=== PATIENT | female | born 1945 | race African-American/Black ===

== ENCOUNTER 2017-11-09 12:13 | Emergency (ER) | payer OTHER ==
[~2017-11-09] VITALS: Ht 162.6 cm; Wt 70.0 kg
[~2017-11-09 12:13] MED LIST: HYDR-2768 PO; HYDR-3533 PO; NITR.4 SL; PROT40TA PO; ULTR50TA PO; WARF3TAB PO; WARF5TAB PO
[2017-11-09 12:14] VITALS: BP 117/75; PULSE 78; RESP 16; TEMP 98.8; O2SAT 99
[2017-11-09] MEDS ORDERED: WARF-23 PO (14:24)
[2017-11-09] MEDS ORDERED: HYDR25TA5 PO (14:24)
[2017-11-09] MEDS ORDERED: TRAM50TA PO (14:24)
[2017-11-09] MEDS ORDERED: METO25TA3 PO (14:24)
[2017-11-09] MEDS ORDERED: LISI2.5T3 PO (14:24)
[2017-11-09] MEDS ORDERED: METO50TA PO (14:24)
[2017-11-09] MEDS ORDERED: MEMA1TAB2 PO (14:24)
[2017-11-09] MEDS ORDERED: WARF4TAB52 PO (14:24)
[2017-11-09] MEDS ORDERED: PANT40TA3 PO (14:24)
--- NOTE | 2017-11-09 14:25 | PD ---
HPI Chief Complaint: GI Complaint Time Seen by Provider: 14:07 Travel History International Travel<30 days: No Contact w/Intl Traveler<30days: No Traveled to known affect area: No History of Present Illness HPI 72-year-old female presents to the emergency department with her daughter at bedside for evaluation of dizziness, fall, vomiting and diarrhea. Patient states she started with vomiting and diarrhea last night. She states that sometime this morning, she believes she tripped and fell over her slippers. She states she woke up on the floor. She states she does not remember exactly what happened. Patient was able to get up on her own. She did hit her head. 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 Patient also complains of right shoulder pain. She states that her dizziness is improved at this time. She'll report slight dizziness. She denies any headache. No fevers or chills. No chest pain or shortness of breath. She states she has had several episodes of diarrhea, but none since arriving to the hospital. No blood in her stool. Patient denies any weakness. No exacerbating or alleviating factors. Moderate severity. PFSH Past Medical History Hx Anticoagulant Therapy: Yes (COUMADIN) Heart Rhythm Problems: No Cardiac Catheterization: No Cardiovascular Problems: Yes (HTN) High Cholesterol: No Chest Pain: Yes Congestive Heart Failure: No Diabetes: No Diminished Hearing: No Deep Vein Thrombosis: Yes Endocrine: No Gastrointestinal Disorders: Yes GERD: Yes Genitourinary: No Hypertension: Yes Musculoskeletal: No Neurologic: No Respiratory: No Myocardial Infarction: No Menopausal: Yes Tubal Ligation: Yes Past Surgical History Cholecystectomy: Yes Coronary Artery Bypass Graft: No Eye Surgery: Yes (cataracts) Pacemaker: No Other Surgery: Yes Social History Alcohol Use: No Tobacco Use: No Substance Use: No Allergies-Medications (Allergen,Severity, Reaction): Coded Allergies: No Known Allergies (Verified Adverse Reaction, Unknown, 11/09/17) Reported Meds & Prescriptions Reported Meds & Active Scripts Active Reported Metoprolol Tartrate 25 Mg Tab 25 Mg PO DAILY Metoprolol Tartrate 50 Mg Tab 50 Mg PO DAILY Tramadol (Tramadol HCl) 50 Mg Tab 50 Mg PO Q8H PRN Lisinopril 2.5 Mg Tab 2.5 Mg PO DAILY Pantoprazole (Pantoprazole Sodium) 40 Mg Tab 40 Mg PO DAILY Warfarin 1 Mg Tab 1 Mg PO DAILY Memantine 10 Mg Tab 10 Mg PO BID Warfarin 5 Mg Tab 5 Mg PO DAILY Hydrochlorothiazide 25 Mg Tab 25 Mg PO BID Review of Systems Except as stated in HPI: all other systems reviewed are Neg Physical Exam Narrative GENERAL: Well-nourished, well-developed elderly female patient, ambulatory with a steady gait. Afebrile. SKIN: Focused skin assessment warm/dry. HEAD: Normocephalic. Atraumatic. ENT: Mucosa pink and moist. No erythema or exudates. No uvular edema. No uvular , palatal, or tonsillar deviation. Airway patent. Nasal turbinates appear normal without nasal blood, purulent drainage or septal hematoma. Bilateral tympanic membranes are clear without erythema or perforation. EYES: No scleral icterus. No injection or drainage. NECK: Supple, trachea midline. No JVD or lymphadenopathy. CARDIOVASCULAR: Regular rate and rhythm without murmurs, gallops, or rubs. Bilateral radial and pedal pulses are 2+. RESPIRATORY: Breath sounds equal bilaterally. No accessory muscle use. Lungs sounds are clear to auscultation. GASTROINTESTINAL: Abdomen soft, non-tender, nondistended. MUSCULOSKELETAL: No cyanosis, or edema. Bilateral upper and lower extremity strength 5/5. All extremities are neurovascularly intact. Patient has tenderness over right shoulder, has full range of motion. BACK: Nontender without obvious deformity. No CVA tenderness. No midline spinal tenderness. She has full range of motion of the cervical spine without pain or stiffness. NEUROLOGICAL: Awake and alert. Cranial nerves II through XII intact. Motor and sensory grossly within normal limits. Five out of 5 muscle strength in all muscle groups. Normal speech. Finger to nose is normal bilaterally. Heel-to- rice is normal bilaterally. Data Data Last Documented VS Vital Signs Date Time Temp Pulse Resp B/P (MAP) Pulse Ox O2 Delivery O2 Flow Rate FiO2 11/09/17 15:43 55 20 129/59 (82) 98 Room Air 11/09/17 12:14 98.8 Orders Orders Electrocardiogram (11/09/17 14:16) Complete Blood Count With Diff (11/09/17 14:16) Comprehensive Metabolic Panel (11/09/17 14:16) Magnesium (Mg) (11/09/17 14:16) Ckmb (Isoenzyme) Profile (11/09/17 14:16) Troponin I (11/09/17 14:16) Act Partial Throm Time (Ptt) (11/09/17 14:16) Prothrombin Time / Inr (Pt) (11/09/17 14:16) Urinalysis - C+S If Indicated (11/09/17 14:16) Chest, Single Ap (11/09/17 14:16) Ct Brain W/O Iv Contrast(Rout) (11/09/17 14:16) Ecg Monitoring (11/09/17 14:16) Iv Access Insert/Monitor (11/09/17 14:16) Oximetry (11/09/17 14:16) Ondansetron Inj (Zofran Inj) (11/09/17 14:30) Sodium Chloride 0.9% Flush (Ns Flush) (11/09/17 14:30) Orthostatic Vital Signs (11/09/17 14:16) Sodium Chlorid 0.9% 500 Ml Inj (Ns 500 M (11/09/17 14:30) Lipase (11/09/17 14:16) Shoulder, Complete (>2vws) (11/09/17 ) CKMB (11/09/17 15:55) CKMB% (11/09/17 15:55) Potassium Chloride (Kcl) (11/09/17 16:45) Acetaminophen (Tylenol) (11/09/17 17:00) Labs Laboratory Tests Test 11/09/17 14:35 11/09/17 14:45 11/09/17 15:55 White Blood Count 7.5 TH/MM3 Red Blood Count 4.42 MIL/MM3 Hemoglobin 13.8 GM/DL Hematocrit 41.1 % Mean Corpuscular Volume 93.1 FL Mean Corpuscular Hemoglobin 31.3 PG Mean Corpuscular Hemoglobin Concent 33.6 % Red Cell Distribution Width 13.6 % Platelet Count 247 TH/MM3 Mean Platelet Volume 9.4 FL Neutrophils (%) (Auto) 86.5 % Lymphocytes (%) (Auto) 7.9 % Monocytes (%) (Auto) 5.1 % Eosinophils (%) (Auto) 0.1 % Basophils (%) (Auto) 0.4 % Neutrophils # (Auto) 6.5 TH/MM3 Lymphocytes # (Auto) 0.6 TH/MM3 Monocytes # (Auto) 0.4 TH/MM3 Eosinophils # (Auto) 0.0 TH/MM3 Basophils # (Auto) 0.0 TH/MM3 CBC Comment DIFF FINAL Differential Comment Prothrombin Time 13.0 SEC Prothromb Time International Ratio 1.3 RATIO Activated Partial Thromboplast Time 25.4 SEC Urine Color YELLOW Urine Turbidity CLEAR Urine pH 5.5 Urine Specific [place] 1.022 Urine Protein TRACE mg/dL Urine Glucose (UA) NEG mg/dL Urine Ketones NEG mg/dL Urine Occult Blood NEG Urine Nitrite NEG Urine Bilirubin NEG Urine Urobilinogen LESS THAN 2.0 MG/DL Urine Leukocyte Esterase MOD Urine RBC 2 /hpf Urine WBC 2 /hpf Urine Squamous Epithelial Cells 2 /hpf Urine Mucus FEW /lpf Microscopic Urinalysis Comment CULT NOT INDICATED Blood Urea Nitrogen 17 MG/DL Creatinine 0.67 MG/DL Random Glucose 94 MG/DL Total Protein 8.0 GM/DL Albumin 3.8 GM/DL Calcium Level 8.3 MG/DL Magnesium Level 2.0 MG/DL Alkaline Phosphatase 96 U/L Aspartate Amino Transf (AST/SGOT) 17 U/L Alanine Aminotransferase (ALT/SGPT) 22 U/L Total Bilirubin 1.1 MG/DL Sodium Level 141 MEQ/L Potassium Level 3.1 MEQ/L Chloride Level 106 MEQ/L Carbon Dioxide Level 27.7 MEQ/L Anion Gap 7 MEQ/L Estimat Glomerular Filtration Rate 104 ML/MIN Total Creatine Kinase 155 U/L Creatine Kinase MB 2.4 NG/ML Troponin I LESS THAN 0.02 NG/ML Lipase 87 U/L MDM Medical Decision Making Medical Screen Exam Complete: Yes Emergency Medical Condition: Yes Medical Record Reviewed: Yes Interpretation(s) CXR CONCLUSION: Mild cardiomegaly no acute cardiac pulmonary disease. X-ray right shoulder - CONCLUSION: 1. Degenerative change in the glenohumeral joint. 2. Findings characteristic of chronic rotator cuff degeneration. Differential Diagnosis Dehydration versus electrolyte abnormality versus gastroenteritis versus closed head injury versus intracranial abnormality versus ACS Narrative Course 72-year-old female presents to the emergency department for evaluation of dizziness, vomiting, diarrhea, possible slip and fall that occurred last night. EKG, CBC, CMP, magnesium, CK, troponin, lipase, PTT, PT/INR, UA are ordered and pending. Chest x-ray and CT of the brain are ordered and pending. X-ray of the right shoulder is ordered and pending. Orthostatic vital signs are ordered and pending. Patient is given normal saline 500 mL bolus, Zofran 4 mg IV. EKG shows sinus bradycardia, HR 56, no acute ST changes. CBC shows no acute abnormality. CMP shows hypokalemia of 3.1. Lipase is 87. CK is 155. Troponin is less than 0.02. PTT is 25.4. PT/INR is 13.0/1.3. UA is negative for acute infection. Chest x-ray shows mild cardiomegaly, no acute cardiopulmonary disease. CT of the brain shows negative noncontrast trauma CT with chronic small vessel ischemic change. X-ray of the right shoulder shows degenerative changes, chronic rotator cuff degeneration. Upon reexamination, patient states she feels much better. She is asking for Tylenol for headache. She states she has no further dizziness. Patient ambulated down the hallway to the bathroom without difficulty. She denies any dizziness. Patient is stable for discharge. She'll be discharged home with prescription for Zofran. She is to return here for any acute worsening of symptoms. She verbalizes agreement and understanding. I discussed the case with my attending physician, Dr. Estevez, who agrees with plan and disposition. Diagnosis Primary Impression: Closed head injury Qualified Codes: S09.90XA - Unspecified injury of head, initial encounter Additional Impression: Vomiting Qualified Codes: R11.2 - Nausea with vomiting, unspecified Referrals: Primary Care Physician call for appointment Patient Instructions: Dizziness (ED), General Instructions, Head Injury (ED) Additional Instructions: Take Zofran as directed as needed for nausea/vomiting. Drink plenty of fluids. Follow-up with your primary care physician Return to the emergency department for any recurrent or worsening symptoms. Med/Other Pt SpecificInfo: Prescription(s) given Scripts Ondansetron Odt (Ondansetron Odt) 4 Mg Tab 4 MG SL Q6HR Y for Nausea/Vomiting, #16 TAB 0 Refills Prov: Talia Bowman 11/09/17 Disposition: 01 DISCHARGE HOME Condition: Stable Talia Bowman Nov 09, 2017 14:25
[2017-11-09] MEDS ORDERED: SODIUM CHLORID 0.9% 500 ML INJ 500 ML IV ONE (14:30)
[2017-11-09] MEDS ORDERED: SODIUM CHLORIDE 0.9% FLUSH 10 ML FLUSH IVF PRN (14:30)
[2017-11-09] MEDS ORDERED: ONDANSETRON HCL 4 MG/2 ML VIAL IVP ONE (14:30)
[2017-11-09 14:46] VITALS: BP_SYST 127; BP_SYST 140; BP_SYST 141; BP_DIAS 65; BP_DIAS 66; RESP 20; RESP 29
[2017-11-09 14:55] LABS: AUTOMATED NEUTROPHIL # 6.5 TH/MM3 (1.8-7.7); BASOPHIL % 0.4 % (0.0-2.0); EOSINOPHIL % 0.1 % (0.0-4.0); HEMATOCRIT 41.1 % (35.0-46.0); HEMOGLOBIN 13.8 GM/DL (11.6-15.3); LYMPH % 7.9 % (9.0-44.0); LYMPHOCYTE # 0.6 TH/MM3 (1.0-4.8); MEAN CELL VOLUME 93.1 FL (80.0-100.0); MEAN CORPUSCULAR HEMOGLOBIN 31.3 PG (27.0-34.0); MEAN CORPUSCULAR HGB CONC 33.6 % (32.0-36.0); MEAN PLATELET VOLUME 9.4 FL (7.0-11.0); MONO % 5.1 % (0.0-8.0); MONOCYTE # 0.4 TH/MM3 (0-0.9); NEUT % 86.5 % (16.0-70.0); PLATELET COUNT 247 TH/MM3 (150-450); RED BLOOD COUNT 4.42 MIL/MM3 (4.00-5.30); RED CELL DISTRIBUTION WIDTH 13.6 % (11.6-17.2); WHITE BLOOD COUNT 7.5 TH/MM3 (4.0-11.0)
[2017-11-09 15:06] LABS: BILIRUBIN, URINE NEG (NEG); BLOOD, URINE NEG (NEG); GLUCOSE,URINE NEG (NEG); KETONE, URINE NEG (NEG); MUCUS URINE FEW /lpf (OCC); NITRITE,URINE NEG (NEG); PH, URINE 5.5 (5.0-8.5); SQUAMOUS EPITHELIAL CELL URINE 2 /hpf (0-5); URINE COLOR YELLOW (YELLW/STRAW); URINE LEUKOCYTE ESTERASE MOD (NEG)
--- NOTE | 2017-11-09 15:18 | RADRPT ---
EXAM DATE/TIME: 11/09/2017 15:09 [facility] COMPARISON: No previous studies available for comparison. INDICATIONS : Right shoulder pain post fall. MEDICAL HISTORY : Hypertension. Deep venous thrombosis. Gastroesophageal reflux disease. SURGICAL HISTORY : Cholecystectomy. Tubal ligation. Bilateral cataracts surgery ENCOUNTER: Initial ACUITY: 2 days PAIN SCORE: 10/10 LOCATION: Right upper extremity FINDINGS: Multiple views of the right shoulder routine and demonstrate degenerative change in the glenohumeral joint with sclerosis and spurring. There is superior migration of the humeral head with narrowing of the acromiohumeral distance. There is eburnation involving the inferior acromium. There is sclerosis and irregularity involving the lateral humeral head. There is no acute fracture underlying degenerati ve change CONCLUSION: 1. Degenerative change in the glenohumeral joint. 2. Findings characteristic of chronic rotator cuff degeneration. Alexis Romeo MD on November 09, 2017 at 15:14 Board Certified Radiologist. This report was verified electronically.
--- NOTE | 2017-11-09 15:20 | RADRPT ---
EXAM DATE/TIME: 11/09/2017 15:05 [facility] COMPARISON: SHOULDER RIGHT COMPLETE (>2VWS), November 09, 2017, 15:09. CHEST SINGLE AP, October 02, 2015, 10:18. INDICATIONS : Patient fell and hurt right shoulder. MEDICAL HISTORY : Hypertension. Deep venous thrombosis. Gastroesophageal reflux disease. SURGICAL HISTORY : Cholecystectomy. Tubal ligation. Bilateral cataracts surgery. Orthopedic knee ENCOUNTER: Initial ACUITY: 2 days PAIN SCORE: 7/10 LOCATION: Right upper chest FINDINGS: A single view of the chest demonstrates the lungs to be symmetrically aerated without evidence of mas s, infiltrate or effusion. The heart size is enlarged no perihilar edema. Osseous structures are int act. CONCLUSION: Mild cardiomegaly no acute cardiac pulmonary disease. Alexis Romeo MD on November 09, 2017 at 15:17 Board Certified Radiologist. This report was verified electronically.
[2017-11-09 15:40] LABS: INTERNATIONAL NORMALIZED RATIO 1.3 RATIO
--- NOTE | 2017-11-09 15:42 | RADRPT ---
EXAM DATE/TIME: 11/09/2017 15:04 [facility] COMPARISON: No previous studies available for comparison. INDICATIONS : Dizziness, fall today. RADIATION DOSE: 56.77 CTDIvol (mGy) MEDICAL HISTORY : Cardiovascular disease. Hypertension. Deep venous thrombosis. SURGICAL HISTORY : Cholecystectomy. Tubal ligation. ENCOUNTER: Initial ACUITY: 1 day PAIN SCALE: 0/10 LOCATION: cranial TECHNIQUE: Multiple contiguous axial images were obtained of the head. Using automated exposure control and adj ustment of the mA and/or kV according to patient size, radiation dose was kept as low as reasonably a chievable to obtain optimal diagnostic quality images. DICOM format image data is available electro nically for review and comparison. FINDINGS: CEREBRUM: The ventricles are normal for age there are patchy periventricular white matter lucencies consistent with chronic small vessel ischemic change. No evidence of midline shift, mass lesion, hemorrhage or a cute infarction. No extra-axial fluid collections are seen. POSTERIOR FOSSA: The cerebellum and brainstem are intact. The 4th ventricle is midline. The cerebellopontine angle i s unremarkable. EXTRACRANIAL: The visualized portion of the orbits is intact. SKULL: The calvaria is intact. No evidence of skull fracture. CONCLUSION: Negative noncontrast trauma CT with chronic small vessel ischemic change. Alexis Romeo MD on November 09, 2017 at 15:38 Board Certified Radiologist. This report was verified electronically.
[2017-11-09 15:43] VITALS: BP 129/59; PULSE 55; RESP 20; O2SAT 98
[2017-11-09 16:36] LABS: ALBUMIN 3.8 GM/DL (3.4-5.0); ALT (GPT) 22 U/L (10-53); AST (GOT) 17 U/L (15-37); BICARBONATE 27.7 MEQ/L (21.0-32.0); BLOOD UREA NITROGEN 17 MG/DL (7-18); CALCIUM 8.3 MG/DL (8.5-10.1); CHLORIDE 106 MEQ/L (98-107); CREATININE 0.67 MG/DL (0.50-1.00); GLOMERULAR FILTRATION RATE 104 ML/MIN (>89); GLUCOSE,RANDOM 94 MG/DL (74-106); LIPASE 87 U/L (73-393); SODIUM (NA) 141 MEQ/L (136-145)
[2017-11-09 16:40] LABS: ALKALINE PHOSPHATASE 96 U/L (45-117); TOTAL BILIRUBIN ADULT 1.1 MG/DL (0.2-1.0); TROPONIN I LESS THAN 0.02 NG/ML (0.02-0.05)
[2017-11-09] MEDS ORDERED: POTASSIUM CHLORIDE 20 MEQ CONTROLLED RELEASE TAB PO ONE (16:45)
[2017-11-09] MEDS ORDERED: ACETAMINOPHEN 325 MG TAB PO ONE (17:00)
[2017-11-09] MEDS ORDERED: ONDA4TAB7 SL (17:00)
--- NOTE | 2017-11-10 17:37 | EKG ---
Date Performed: 11/09/2017 Time Performed: 15:34:07 PTAGE: 72 years EKG: SINUS BRADYCARDIA BORDERLINE ECG PREVIOUS TRACING : 10/02/2015 10.01 Since previous tracing, no significant change noted DOCTOR: Walt Vanegas Interpretating Date/Time 11/10/2017 17:35:50
== END 2017-11-09 17:31 | disposition home or self-care (01) ==
LOC: NEPC 12:13
DX: S09.90XA Unspecified injury of head, initial encounter (principal); R11.10 Vomiting, unspecified; R19.7 Diarrhea, unspecified; R00.1 Bradycardia, unspecified; I51.7 Cardiomegaly; I10 Essential (primary) hypertension; K21.9 Gastro-esophageal reflux disease without esophagitis; W01.0XXA Fall on same level from slipping, tripping and stumbling without subsequent striking against object, initial encounter; Z79.01 Long term (current) use of anticoagulants
CPT/HCPCS: 70450; 71045; 73030; 80053; 81001; 82550; 82552; 83690; 83735; 84484; 85025; 85610; 85730; 93005; 96361; 96374; 99285; J2405; J7040